=== PATIENT | female | born 1995 | race Caucasian/White ===

== ENCOUNTER 2018-11-13 13:38 | Emergency (ER) | payer OTHER ==
[~2018-11-13] VITALS: Ht 157.5 cm; Wt 57.7 kg
[2018-11-13] MEDS ORDERED: FOLI200T11 PO (14:08)
[2018-11-13] MEDS ORDERED: AZAT50TA35 PO (14:08)
[2018-11-13] MEDS ORDERED: PRED1 PO (14:08)
[2018-11-13] MEDS ORDERED: HYDR200T4 PO (14:08)
[2018-11-13 15:26] LABS: APPEARANCE,URINE CLEAR (CLEAR); BILIRUBIN,URINE NEGATIVE (NEGATIVE); GLUCOSE, URINE (UA) NEGATIVE (NEGATIVE); KETONES,URINE NEGATIVE (NEGATIVE); LEUKOCYTE ESTERASE ,URINE NEGATIVE (NEGATIVE); NITRATE,URINE POSITIVE (NEGATIVE); OCCULT BLOOD,URINE NEGATIVE (NEGATIVE); PROTEIN,URINE NEGATIVE (NEGATIVE); UROBILINOGEN,URINE 0.2 mg/dL (<=1.0)
[2018-11-13 15:46] LABS: BASOPHILS % (AUTO) 0.5 % (0.0-2.0); EOSINOPHILS % (AUTO) 0.2 % (1.0-6.0); HEMATOCRIT 38.7 % (36-46); HEMOGLOBIN 13.4 g/dL (12.0-16.0); LYMPHOCYTES # (AUTO) 0.4 K/uL (1.0-4.8); LYMPHOCYTES % (AUTO) 12.5 % (22.0-44.0); MEAN CORPUSCULAR HEMOGLOBIN 32.1 pg (26.0-34.0); MEAN CORPUSCULAR HGB CONC 34.6 G/dL (31.0-37.0); MEAN CORPUSCULAR VOLUME 93 fL (80-100); MONOCYTES # (AUTO) 0.2 K/uL (0.1-1.0); MONOCYTES % (AUTO) 6.5 % (2.0-9.0); NEUTROPHILS # (AUTO) 2.6 K/uL (1.8-7.7); NEUTROPHILS % (AUTO) 80.3 % (40.0-70.0); PLATELET COUNT (AUTO) 151 K/uL (150-450); RED BLOOD CELL COUNT(AUTO) 4.18 MIL/uL (4.00-5.20); RED CELL DISTRIBUTION WIDTH 14.7 % (11.5-14.5)
[2018-11-13 15:48] LABS: BACTERIA,URINE Many /HPF (None Seen)
[2018-11-13 15:49] LABS: RBC,URINE None Seen /HPF (0-2); SQUAMOUS EPITHELIAL CELL,UR Rare /LPF (None Seen); WBC,URINE 0-2 /HPF (0-5)
[2018-11-13 16:05] LABS: ANION GAP 6 mmol/L (8-16); CALCIUM, TOTAL 8.9 mg/dL (8.8-10.5); CARBON DIOXIDE 29 mmol/L (22-29); CHLORIDE 104 mmol/L (98-107); CREATININE 0.49 mg/dL (0.60-1.30); GLOMERULAR FILTR. RATE CALC > 60 mL/min (>60); GLUCOSE,RANDOM 80 mg/dL (70-110); POTASSIUM 4.6 mmol/L (3.5-5.1); SODIUM SERUM 139 mmol/L (136-145); UREA NITROGEN, BLOOD 13 mg/dL (7-18)
[2018-11-13 16:18] LABS: ALANINE AMINOTRANSFERASE 141 U/L (12-78); ALBUMIN 3.3 g/dL (3.4-5.0); ALKALINE PHOSPHATASE 96 U/L (46-116); ASPARTATE AMINOTRANSFERASE 62 U/L (15-37); BILIRUBIN,TOTAL 0.2 mg/dL (0.1-1.0); HCG,QUANTITATIVE < 1 mIU/mL (0-6); LIPASE 71 U/L (73-393); TOTAL PROTEIN, SERUM 9.3 g/dL (6.4-8.2)
[2018-11-13 16:34] LABS: PLATELET MORPHOLOGY COMMENT LARGE PLTS PRESENT
[2018-11-13] MEDS ORDERED: SULFAMETHOX/TRIMETH 800-160 MG/20 ML SUSPENSION ORAL SYRINGE PEG ONE (17:00)
[2018-11-13] MEDS ORDERED: IBUPROFEN 100 MG/5 ML SUSPENSION UDCUP PEG ONE (17:00)
[2018-11-13 17:47] VITALS: BP 111/68
== END 2018-11-13 18:00 | disposition home or self-care (01) ==
LOC: EMS 13:38
DX: N39.0 Urinary tract infection, site not specified (principal); F84.0 Autistic disorder
CPT/HCPCS: 51702; 87086

== ENCOUNTER 2019-01-07 06:07 | Emergency (ER) | payer OTHER ==
[~2019-01-07] VITALS: Ht 160 cm; Wt 54.5 kg
[~2019-01-07 06:07] MED LIST: AZAT50TA35 PO; FOLI200T11 PO; HYDR200T4 PO; PRED1 PO
[2019-01-07] MEDS ORDERED: LORazepam 2 MG/ML VIAL IM ONE (08:00)
[2019-01-07] MEDS ORDERED: DIATRIZOATE MEGLU/SOD 660/100 MG/ML 120 ML BOTTLE ONE (10:37)
[2019-01-07 12:44] VITALS: BP 111/68
== END 2019-01-07 12:59 | disposition home or self-care (01) ==
LOC: EMS 06:07
DX: K94.23 Gastrostomy malfunction (principal); M32.9 Systemic lupus erythematosus, unspecified; F84.0 Autistic disorder; Z79.899 Other long term (current) drug therapy; Y73.2 Prosthetic and other implants, materials and accessory gastroenterology and urology devices associated with adverse incidents
CPT/HCPCS: 49440; 76000; 96372; 99284; C1769; J2060; Q9963

== ENCOUNTER 2023-02-04 19:34 | Emergency (ER) | payer OTHER ==
[~2023-02-04] VITALS: Ht 160 cm; Wt 55.0 kg
[~2023-02-04 19:34] MED LIST changes: +AZAT50TA22 PO; -AZAT50TA35 PO; +HYDR200T38 PO; -HYDR200T4 PO
[2023-02-04 19:41] VITALS: BP 115/72
[2023-02-04] MEDS ORDERED: GABA-1216 PO (19:57)
== END 2023-02-04 23:30 | disposition home or self-care (01) ==
LOC: EMS 19:36
DX: Z43.1 Encounter for attention to gastrostomy (principal); F84.0 Autistic disorder; Z98.890 Other specified postprocedural states
CPT/HCPCS: 99281; Z7502